=== PATIENT | male | born 1995 | race Two or more races ===

== ENCOUNTER 2023-01-21 20:38 | Emergency (ER) | payer SELFPAY ==
[~2023-01-21] VITALS: Ht 170.2 cm; Wt 70.5 kg
[2023-01-21 20:45] VITALS: BP 115/61; PULSE 75; RESP 18; O2SAT 98
[2023-01-21 21:22] LABS: Basophils # (auto) 0.1 10 ^3/uL (0-0.2); Basophils % (auto) 1.4 % (0.0-2.0); Eosinophils % (auto) 14.1 % (0.0-7.0); Hematocrit 46.2 % (41.0-53.0); Hemoglobin 15.3 g/dL (13.5-17.5); Lymphocytes # (auto) 3.3 10 ^3/uL (0.4-5.4); Lymphocytes % (auto) 45.5 % (10.0-50.0); Mean Corpuscular Hemoglobin 30.2 pg (28.0-32.0); Mean Corpuscular Hgb Conc. 33.2 g/dL (32.0-36.0); Monocytes # (auto) 0.5 10 ^3/uL (0-1.3); Monocytes % (auto) 6.8 % (0.0-12.0); Neutrophils # (auto) 2.3 10 ^3/uL (1.6-8.6); Neutrophils % (auto) 32.2 % (37.0-80.0); Nucleated Red Blood Cells % 0.2 %; Red Blood Cells 5.07 10^6/uL (4.5-5.90); Red Cell Distribution Width 12.8 % (11.8-14.3); White Blood Cell 7.2 10^3/uL (4.4-10.8)
[2023-01-21 21:51] LABS: Calcium 8.9 mg/dL (8.5-10.1); Magnesium 2.1 mg/dL (1.6-2.6); Potassium 4.4 mmol/L (3.5-5.1)
[2023-01-21 21:53] LABS: BUN/Creatinine Ratio 15.8 (10.0-20.0)
[2023-01-21 21:56] LABS: Bilirubin, Total 0.6 mg/dL (0.2-1.0); Total Protein 7.7 g/dL (6.4-8.2)
[2023-01-21] MEDS ORDERED: SIMETHICONE 80 MG CHEWABLE TABLET PO ONE (22:00)
[2023-01-21] MEDS ORDERED: ONDANSETRON ODT 4 MG TAB PO ONE (22:00)
[2023-01-22] MEDS ORDERED: SIME80CH49 PO (00:49)
[2023-01-22] MEDS ORDERED: ZOFR4T PO (00:49)
== END 2023-01-21 22:30 | disposition home or self-care (01) ==
LOC: ER 20:38
DX: R10.84 Generalized abdominal pain (principal); R11.2 Nausea with vomiting, unspecified
CPT/HCPCS: 36415; 80053; 83735; 85025; 86677; 99283; Q0162